=== PATIENT | female | born 1990 | race Caucasian/White ===

== ENCOUNTER 2016-11-27 01:40 | Emergency (ER) | payer SELFPAY ==
[~2016-11-27] VITALS: Ht 162.6 cm; Wt 77.0 kg
[2016-11-27 01:50] VITALS: Ht 162.6 cm; Wt 77.0 kg
== END 2016-11-27 02:54 | disposition left against medical advice (07) ==
LOC: FTE 01:40
DX: Z53.21 Procedure and treatment not carried out due to patient leaving prior to being seen by health care provider (principal)

== ENCOUNTER 2017-08-31 17:34 | Inpatient (IN) | END 2017-09-03 18:45 | disposition home or self-care (01) | DRG 552 ==

== ENCOUNTER 2017-12-11 10:54 | Emergency (ER) | END 2017-12-11 17:28 | disposition home or self-care (01) ==

== ENCOUNTER 2017-12-12 21:02 | Inpatient (IN) | END 2017-12-14 18:40 | disposition home or self-care (01) | DRG 419 ==

== ENCOUNTER 2018-01-13 17:50 | Emergency (ER) | END 2018-01-13 20:47 | disposition home or self-care (01) ==

== ENCOUNTER 2018-02-28 11:39 | Emergency (ER) | END 2018-02-28 15:59 | disposition home or self-care (01) ==

== ENCOUNTER 2018-03-13 21:25 | Emergency (ER) | END 2018-03-14 02:29 | disposition home or self-care (01) ==

== ENCOUNTER 2018-04-15 13:37 | Emergency (ER) | END 2018-04-15 16:05 | disposition home or self-care (01) ==